=== PATIENT | male | born 1985 ===

== ENCOUNTER 2018-04-24 20:36 | Emergency (ER) | payer OTHER ==
[2018-04-24 21:34] VITALS: BP 143/79; RESP 16; TEMP 99.1; O2SAT 98
--- NOTE | 2018-04-24 21:49 | ED PDOC ---
HPI: Male Pain Time Seen by Provider: 04/24/18 21:36 Chief Complaint (Nursing): Male Genitourinary Chief Complaint (Provider): Male Genitourinary History Per: Patient History/Exam Limitations: no limitations Onset/Duration Of Symptoms: Days (x2 days) Current Symptoms Are (Timing): Still Present Quality Of Discomfort: Burning Associated Symptoms: Urinary Symptoms Additional Complaint(s): Patient is a 32 year old male who reports dysuria, frequency/urgency, hematuria, and tactile fever onset x2 days. Patient states he has no history of UTI and currently is not taking any medication for his symptoms. Patient reports that he is sexually active, using no protection, with one female partner(). He also reports to have an uncircumcised penis. Otherwise: (-) penile discharge (-) concern for STDs (-) history of STDs (-) chills, (-) back/flank pain, (- )nausea/vomiting. PMD: no provider Past Medical History Reviewed: Historical Data, Nursing Documentation, Vital Signs Vital Signs: Last Vital Signs Temp 99.1 F 04/24/18 21:32 Pulse 100 H 04/24/18 21:32 Resp 16 04/24/18 21:32 BP 143/79 04/24/18 21:32 Pulse Ox 98 04/24/18 21:32 - Medical History PMH: No Chronic Diseases - Surgical History Other surgeries: LASIK Eye surgery - Family History Family History: States: Unknown Family Hx - Home Medications Home Medications: Ambulatory Orders Medication Instructions Recorded Phenazopyridine HCl [Pyridium] 200 mg PO BID PRN #4 tablet 04/24/18 RX: Ciprofloxacin [Cipro] 500 mg PO BID #14 tab 04/24/18 - Allergies Allergies/Adverse Reactions: Allergies Allergy/AdvReac Type Severity Reaction Status Date / Time No Known Allergies Allergy Verified 04/24/18 21:35 Review of Systems ROS Statement: Except As Marked, All Systems Reviewed And Found Negative Constitutional: Positive for: Fever (tactile) Genitourinary Male: Positive for: Dysuria, Frequency, Hematuria. Negative for: Penile Discharge Physical Exam - Reviewed Nursing Documentation Reviewed: Yes Vital Signs Reviewed: Yes - Physical Exam Comments: GENERAL APPEARANCE: Patient is awake, alert, oriented x 3, resting comfortably and in no acute distress. SKIN: Warm, dry; (-) cyanosis. ENMT: Mucous membranes moist. Airway patent: (-) stridor. NECK: Supple, FROM CHEST AND RESPIRATORY: (-) wheezing; (-) rales, (-) rhonchi, (-) rub; breath sounds equal bilaterally. Respirations even and nonlabored. HEART AND CARDIOVASCULAR: (-) irregularity ABDOMEN AND GI: Soft; (+) suprapubic tenderness (-) distention (-) guarding (-) CVA tenderness EXTREMITIES: (-) deformity NEURO AND PSYCH: Mental status as above; (-) focal findings. Gait: steady. Speech: clear. (-) facial asymmetry - ECG O2 Sat by Pulse Oximetry: 98 (RA) Pulse Ox Interpretation: Normal Medical Decision Making Medical Decision Making: Time: 21:35 Impression: dysuria, urinary frequency, hematuria; rule out UTI Plan: --Urine culture --Urinalysis --Chlamydia/GC RNA, TMA --Pyridium PO 2300 U/A reviewed (+) WBC (+) RBC (+) leukocytes (-) nitrate Cipro 500mg PO ordered. Repeat HR: 80 On re-evaluation, patient reports improvement of symptoms. On exam, patient remains AAOx3, in no acute distress. Vitals stable. Lab/Diagnostic results d/w the patient in great detail. Diagnosis of UTI d/w the patient. Based on history, exam and diagnostic results, plan will be for outpatient follow up with PMD/urology/clinic. Patient instructed to follow-up with pmd / referral provided / the clinic in 1- 2 days without fail. Advised to take medication as prescribed. Return to the emergency room at any time for any new or worsening symptoms. Patient states he fully agrees with and understands discharge instructions. States that he agrees with the plan and disposition. Verbalized and repeated discharge instructions and plan. I have given the patient opportunity to ask any additional questions. Scribe Attestation: Documented by Eugene Moon, acting as a scribe for Olena Gamino. Provider Scribe Attestation: All medical record entries made by the Scribe were at my direction and personally dictated by me. I have reviewed the chart and agree that the record accurately reflects my personal performance of the history, physical exam, medical decision making, and the department course for this patient. I have also personally directed, reviewed, and agree with the discharge instructions and disposition. Disposition - Clinical Impression Clinical Impression: Urinary tract infection, Cystitis, Hematuria - Patient ED Disposition Is Patient to be Admitted: No Counseled Patient/Family Regarding: Studies Performed, Diagnosis, Need For Followup, Rx Given - Disposition Referrals: Sen Sutton MD [Staff Provider] - [facility] [Outside] Disposition: Routine/Home Disposition Time: 23:00 Condition: STABLE Additional Instructions: The emergency medical care you received today was directed at your acute s ymptoms. If you were prescribed any medication, please fill it and take as directed. It may take several days for your symptoms to resolve. Return to the Emergency Department if your symptoms worsen, do not improve, or if you have any other problems. Please contact your doctor in 2 days for re-evaluation and follow up / or call one of the physicians/clinics you have been referred to that are listed on the Patient Visit Information form that is included in your discharge packet. Bring any paperwork you were given at discharge with you along with any medications you are taking to your follow up visit. Our treatment cannot replace ongoing medical care by a primary care provider (PCP) outside of the emergency department. Prescriptions: RX: Ciprofloxacin [Cipro] 500 mg PO BID #14 tab Phenazopyridine HCl [Pyridium] 200 mg PO BID PRN #4 tablet PRN Reason: urinary discomfort Instructions: Urinary Tract Infections in Adults, Blood in the Urine (Hematuria), Adult (DC) Forms: [employer] (Albanian) Print Language: YI - POA Present On Arrival: None Results - Lab Results Lab Results: 04/24/18 22:10 Urine Color Yellow Urine Clarity Cloudy Urine pH 7.0 Ur Specific [place] 1.016 Urine Protein 100 Urine Glucose (UA) Neg Urine Ketones Negative Urine Blood Moderate Urine Nitrate Negative Urine Bilirubin Negative Urine Urobilinogen 1.0 Ur Leukocyte Esterase Large Urine RBC (Auto) 53 H Urine Microscopic WBC 554 H Ur Squamous Epith Cells 2 Amorphous Sediment Occ H Urine Bacteria Rare
[2018-04-24 22:27] LABS: SQUAMOUS EPITHIAL 2 /hpf (0-5); URINE AMORPHOUS SEDIMENT OCC /ul (<OCC); URINE BACTERIA RARE (<OCC); URINE BILIRUBIN NEGATIVE (NEGATIVE); URINE BLOOD MODERATE (NEGATIVE); URINE CLARITY CLOUDY (Clear); URINE COLOR YELLOW (YELLOW); URINE GLUCOSE (UA) NEG (NEGATIVE); URINE LEUKOCYTE ESTERASE LARGE Leu/uL (Negative); URINE PROTEIN 100 mg/dL (NEGATIVE)
[2018-04-24 23:05] VITALS: PULSE 80
== END 2018-04-24 23:18 | disposition home or self-care (01) ==
LOC: H.ER 20:36
DX: N39.0 Urinary tract infection, site not specified (principal); N30.91 Cystitis, unspecified with hematuria

== ENCOUNTER 2018-05-10 16:40 | Emergency (ER) | payer OTHER ==
[2018-05-10 17:15] VITALS: BP 152/80; PULSE 66; RESP 16; TEMP 98.6; O2SAT 100
[2018-05-10] MEDS ORDERED: cefTRIAXone (Rocephin) 250 mg Inj IM ONE (17:45)
[2018-05-10] MEDS ORDERED: Sterile Water 10 ML IV ONE (17:52)
[2018-05-10] MEDS ORDERED: cefTRIAXone (Rocephin) 250 mg Inj ONE (17:52)
--- NOTE | 2018-05-10 18:31 | ED PDOC ---
HPI: Male Pain Time Seen by Provider: 05/10/18 17:17 Chief Complaint (Nursing): Male Genitourinary Chief Complaint (Provider): Male Genitourinary History Per: Patient History/Exam Limitations: no limitations Current Symptoms Are (Timing): Still Present Associated Symptoms: denies: Fever Additional Complaint(s): 32 y/o male with no significant PMHX, presents to the ED for evaluation after testing positive for gonorrhea. Patient was here last week for urinary symptoms and was treated for uti. Gc/chlamydia testing was sent and pt. received a phone call a couple days ago that his gonorrhea test was positive and to come in to ED for treatment. Otherwise, patient denies any abdominal pain, fever, and any other complaints. PMD: non provided Past Medical History Reviewed: Historical Data, Nursing Documentation, Vital Signs Vital Signs: Last Vital Signs Temp 98.6 F 05/10/18 17:13 Pulse 66 05/10/18 17:13 Resp 16 05/10/18 17:13 BP 152/80 H 05/10/18 17:13 Pulse Ox 100 05/10/18 17:13 - Medical History PMH: No Chronic Diseases - Surgical History Surgical History: No Surg Hx - Family History Family History: States: Unknown Family Hx - Immunization History Hx Tetanus Toxoid Vaccination: No Hx Influenza Vaccination: No Hx Pneumococcal Vaccination: No - Home Medications Home Medications: Ambulatory Orders Medication Instructions Recorded Phenazopyridine HCl [Pyridium] 200 mg PO BID PRN #4 tablet 04/24/18 RX: Ciprofloxacin [Cipro] 500 mg PO BID #14 tab 04/24/18 - Allergies Allergies/Adverse Reactions: Allergies Allergy/AdvReac Type Severity Reaction Status Date / Time No Known Allergies Allergy Verified 05/10/18 17:13 Review of Systems ROS Statement: Except As Marked, All Systems Reviewed And Found Negative Constitutional: Negative for: Fever Gastrointestinal: Negative for: Abdominal Pain Physical Exam - Reviewed Nursing Documentation Reviewed: Yes Vital Signs Reviewed: Yes - Physical Exam Appears: Positive for: Well, No Acute Distress Head Exam: Positive for: ATRAUMATIC, NORMAL INSPECTION, NORMOCEPHALIC Skin: Positive for: Normal Color, Warm, Dry Eye Exam: Positive for: EOMI, Normal appearance, PERRL Cardiovascular/Chest: Positive for: Regular Rate, Rhythm. Negative for: Murmur Respiratory: Positive for: Normal Breath Sounds. Negative for: Wheezing, Respiratory Distress Gastrointestinal/Abdominal: Positive for: Normal Exam Back: Positive for: Normal Inspection Extremity: Positive for: Normal ROM Neurologic/Psych: Positive for: Alert, Oriented (x3). Negative for: Motor/Sensory Deficits - ECG O2 Sat by Pulse Oximetry: 100 (RA) Pulse Ox Interpretation: Normal Medical Decision Making Medical Decision Making: Time: 17:45 -Rocephin 250 mg IM -Zithromax 1,000 mg PO Patient was advised to contact his sexual partner and inform them of a positive finding of gonorrhea. Also, he was advised to have no sexual contact for a week. Scribe Attestation: Documented by Nichelle Lopez , acting as a scribe for Harini Muñoz. Provider Scribe Attestation: All medical record entries made by the Scribe were at my direction and personally dictated by me. I have reviewed the chart and agree that the record accurately reflects my personal performance of the history, physical exam, medical decision making, and the department course for this patient. I have also personally directed, reviewed, and agree with the discharge instructions and disposition. Disposition - Clinical Impression Clinical Impression: Gonorrhea - Disposition Referrals: [facility] [Outside] Disposition: Routine/Home Disposition Time: 18:30 Condition: STABLE Instructions: Gonorrhea (DC) Forms: [employer] (Grenadian)
== END 2018-05-10 19:02 | disposition home or self-care (01) ==
LOC: H.ER 16:40
DX: A54.9 Gonococcal infection, unspecified (principal)
CPT/HCPCS: 96372; 99282; J0696